=== PATIENT | female | born 1980 | race American Indian/Alaskan Native ===

== ENCOUNTER 2016-09-04 14:50 | Outpatient (CLI) | payer BC ==
--- NOTE | 2016-09-04 16:23 | Mammography Report ---
Right mammogram: This is a six-month followup to prior exam in February 2016. The asymmetry identified in the lateral right breast is less evident on the current study. It is not identified on MLO view. Findings are not otherwise remarkable. Impression: Benign findings. Recommendation: Annual followup mammogram in 6 months. BI-RADS CATEGORY: 2 = Benign ACR BI-RADS MAMMOGRAPHIC CODES: 0 = Needs additional imaging evaluation; 1 = Negative; 2 = Benign; 3 = Probably benign; 4 = Suspicious; 5 = Malignant; 6 = Known biopsy-proven malignancy COMMENT: 1. Dense breast tissue, i.e., adenosis, fibrocystic changes, etc., may obscure an underlying neoplasm. 2. Approximately 10% of cancers are not detected with mammography. 3. A negative mammography report should not delay biopsy if a clinically suspicious mass is present. The
== END 2016-09-04 14:51 | disposition home or self-care (01) ==
LOC: MAMMO 14:50
PROVIDERS: ATTEND Obstetrics & Gynecology Gynecology
DX: R92.8 Other abnormal and inconclusive findings on diagnostic imaging of breast (principal)
CPT/HCPCS: G0206-RT